=== PATIENT | female | born 1960 | race Caucasian/White ===

== ENCOUNTER → 2017-07-02 14:32 | Outpatient (CLI) | payer BC ==
[2015-04-12 06:52] VITALS: BMI 25.8
[~2017-07-02 14:32] MED LIST: ASPIRIN EC81 M1 PO; DIOVAN80 MG PO; MULTI-DAY VITAM1 TAB PO; ZOCOR20 MG PO
== END | disposition home or self-care (01) ==
LOC: D.MAMMO 10:30
DX: Z12.31 Encounter for screening mammogram for malignant neoplasm of breast (principal)